=== PATIENT | male | born 1950 | race Caucasian/White ===

== ENCOUNTER → 2017-01-22 | Outpatient (CLI) | payer MEDICARE ==
[~2017-01-22] MED LIST: BAYER CHEWABLE81 MG PO; BUMETANIDE2 MG PO; CATAPRES 0.1MG0.1 MG PO; COLCHICINE 0.60.6 MG PO; COREG 3.125M3.125 MG PO; FERROUS SULFAT325 M2 PO; ISOSORBIDE MONO60 MG PO; LACTULOSE10 GM/15 M PO; LANTUS100 UNIT/1 SQ; LIPITOR TAB 2020 MG PO; NORVASC 5 MG TAB5 MG PO; OMEPRAZOLE40 MG PO; VITAMIN D2000 UNIT PO; ZYLOPRIM 100 M100 MG PO
[2017-01-22 09:50] LABS: HEMOGLOBIN 11.2 gm/dl (14.0-17.5); RED BLOOD COUNT 3.93 M/UL (4.20-5.50); WHITE BLOOD COUNT 8.9 K/UL (4.5-11.0)
== END ==
LOC: OPSV 01-21 08:00
PROVIDERS: Internal Medicine Nephrology
DX: E11.29 Type 2 diabetes mellitus with other diabetic kidney complication (principal); N18.4 Chronic kidney disease, stage 4 (severe); E78.5 Hyperlipidemia, unspecified; D50.9 Iron deficiency anemia, unspecified
CPT/HCPCS: 36415; 80053; 80061; 82570; 82728; 83036; 83540; 83550; 84156; 84443; 85027

== ENCOUNTER → 2017-03-20 | Outpatient (CLI) | payer MEDICARE | LOC: LAB 08:40 | DX: E78.00 Pure hypercholesterolemia, unspecified (principal) | CPT/HCPCS: 36415; 80061; 80076 ==